=== PATIENT | male | born 2000 | race Caucasian/White ===

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

== ENCOUNTER 2020-02-08 09:13 | Outpatient (CLI) | payer OTHER ==
--- NOTE | 2020-02-08 10:39 | MRI Report ---
PROCEDURE: Lumbar Spine W/O INDICATIONS: INTERVERTABRAL DISC DISORDER TECHNIQUE: Noncontrast sagittal T1 spin echo and T2 fast echo, sagittal STIR, axial T1 and T2 fast spin echo thr ough the lumbar spine. In cases with scoliosis, additional coronal T2 fast spin echo may be performe d. COMPARISON: None. FINDINGS: Image quality: Excellent. Alignment and Curvature: No plain films are available for comparison. Thus, for numbering purposes, 5 lumbar type vertebral bodies will be presumed for the current report. This should be confirmed with plain film correlation prior to any lumbar spinal intervention. There is mild grade 1 anterolisthesi s of L5 on S1. Bone Marrow: Marrow is of normal overall signal. No acute vertebral body compression fractures. Mi ld reactive signal within the end plates adjacent to the L5-S1 intervertebral disc. Bilateral L5-S1 p ars interarticularis defect. Spinal Cord: Conus medullaris terminates at the mid L1 level. Visualized cord demonstrates normal s ignal and size. Paraspinous Soft Tissues: No paravertebral masses. T12-L1: Normal in appearance. L1-L2: Mild diffuse disc bulge. Mild canal stenosis. No foraminal stenosis. L2-L3: Normal in appearance. L3-L4: Minimal diffuse disc bulge. No significant canal, nor foraminal stenosis. L4-L5: Normal in appearance. L5-S1: Mild disc height loss and desiccation. Mild diffuse disc bulge. Mild bilateral facet hypertr ophy. Mild canal stenosis. Mild bilateral foraminal stenosis. IMPRESSION: 1. Grade 1 isthmic spondylolisthesis at L5-S1. 2. Multilevel degenerative disc and facet disease, in addition to epidural lipomatosis and ligamentum flavum hypertrophy. 3. Mild multilevel canal and foraminal stenoses. 4. Five lumbar type vertebral bodies were presumed for the purposes of the current report. Correlati on with plainfilms for numbering purposes is recommended prior to any lumbar spinal intervention. Reviewed by: William Villarreal MD on 02/08/2020 10:38 AM PST Approved by: William Villarreal MD on 02/08/2020 10:38 AM PST Station ID: [id number]
== END 2020-02-08 09:14 | disposition home or self-care (01) ==
LOC: DI 09:13
PROVIDERS: ATTEND Family Medicine
DX: M51.37 Other intervertebral disc degeneration, lumbosacral region (principal); M48.07 Spinal stenosis, lumbosacral region; Q76.0 Spina bifida occulta
CPT/HCPCS: 72148